=== PATIENT | female | born 1930 | race Caucasian/White ===

== ENCOUNTER 2018-10-08 13:52 | Emergency (ER) | payer MEDICARE ==
[~2018-10-08] VITALS: Ht 162.6 cm; Wt 83.5 kg
[~2018-10-08 13:52] MED LIST: CIPRO500 MG PO; DICLOFENAC SODI50 MG PO; FOLBIC TABLET1 EACH PO; LOSARTAN POTASS50 MG PO; OMEPRAZOLE20 MG PO; PAXIL40 MG PO
--- NOTE | 2018-10-08 15:24 | Diagnostic Imaging Report ---
EXAM: CHEST SINGLE (PORTABLE) DATE: 10/08/2018 2:07 PM INDICATION: ^CHEST PAIN COMPARISON: None FINDINGS: Lines and tubes: None Heart size normal. No focal pulmonary opacity, pleural effusion or pneumothorax. Upper abdomen unremarkable. No acute bony abnormality. IMPRESSION: No evidence for acute disease. Signed by: Dr. Rodolfo Sage M.D. on 10/08/2018 3:20 PM
[2018-10-08 15:42] LABS: BASOPHILS % 0.3 % (0.0-1.0); EOSINOPHILS % 0.1 % (0.0-6.0); HEMATOCRIT 41.3 % (34.2-44.1); LYMPHOCYTES # (AUTO) 1.8 (1.0-3.2); LYMPHOCYTES % 24.8 % (18.0-39.1); MEAN CORPUSCULAR HEMOGLOBIN 31.8 pg (28-32); MEAN CORPUSCULAR HGB CONC 33.9 g/dL (31-35); MEAN CORPUSCULAR VOLUME 93.9 fL (81-99); MONOCYTES # (AUTO) 0.3 (0.2-0.8); MONOCYTES % 4.6 % (4.4-11.3); NEUTROPHILS # (AUTO) 5.2 (2.1-6.9); NEUTROPHILS % 69.8 % (38.7-80.0); PLATELET COUNT 179 x10e3/uL (140-360); RED CELL DISTRIBUTION WIDTH 13.5 % (11.7-14.4)
[2018-10-08] MEDS ORDERED: PROMETHAZINE 25MG/ NS 50ML (IV) IV ONE (15:45)
[2018-10-08 16:03] LABS: ALBUMIN 3.7 g/dL (3.5-5.0); ALBUMIN/GLOBULIN RATIO 1.2 (0.8-2.0); CALCIUM 9.6 mg/dL (8.4-10.2); CREATININE, SERUM 0.9 mg/dL (0.57-1.11)
[2018-10-08 16:04] LABS: MAGNESIUM 2.5 MG/DL (1.3-2.1)
[2018-10-08 16:05] LABS: CLARITY,URINE HAZY (CLEAR); COLOR,URINE YELLOW (YELLOW); LEUKOCYTE ESTERASE ,URINE NEGATIVE (NEGATIVE); NITRITE,URINE NEGATIVE (NEGATIVE); PROTEIN,URINE DIPSTICK NEGATIVE (NEGATIVE)
[2018-10-08 16:06] LABS: BILIRUBIN,URINE NEGATIVE (NEGATIVE); KETONES,URINE TRACE (NEGATIVE); URINE UROBILINOGEN 0.2 mg/dL (0.2 - 1)
[2018-10-08 16:07] LABS: INR 0.95; PARTIAL THROMBOPLASTIN TIME 25.1 seconds (23.8-35.5); PROTHROMBIN TIME 13.2 seconds (11.9-14.5)
[2018-10-08 16:10] LABS: CREATINE KINASE MB 0.5 ng/mL (0-5.0)
[2018-10-08 16:15] LABS: AMORPHOUS SEDIMENT,URINE FEW (FEW); BACTERIA,URINE MODERATE /HPF; EPITHELIAL CELLS,URINE FEW /LPF; HYALINE CASTS 0-1 (0-1); MUCUS,URINE FEW (RARE); WBC,URINE (MAN) 0-5 /HPF (0-5)
[2018-10-08] MEDS ORDERED: SODIUM CHLORIDE 0.9% 50ML 0 ML ONE (17:11)
[2018-10-08] MEDS ORDERED: IOPAMIDOL 370 MG/ML 200 ML INFUS..BTL INJ ONE (17:11)
--- NOTE | 2018-10-08 17:50 | Diagnostic Imaging Report ---
EXAMINATION: CT of the abdomen and pelvis with contrast. TECHNIQUE: Helical CT images of the abdomen and pelvis were performed from the lung bases to the lesser trochanters after the intravenous administration of 100 cc of Isovue 300 and the oral administration of none. Coronal and sagittal reformatted images were obtained.Dose modulation, iterative reconstruction, and/or weight based adjustment of the mA/kV was utilized to reduce the radiation dose to as low as reasonably achievable. COMPARISON: None. CLINICAL HISTORY:Nausea DISCUSSION: ABDOMEN/PELVIS: LOWER THORAX:Unremarkable. HEPATOBILIARY: No focal hepatic lesions. Cholecystectomy. Intrahepatic biliary dilatation. The common bile duct measures 1.4 cm. SPLEEN: No splenomegaly. PANCREAS: No focal masses or ductal dilatation. ADRENALS: No adrenal nodules. KIDNEYS/URETERS: No hydronephrosis, stones, or solid mass lesions. PELVIC ORGANS/BLADDER: The bladder is normal. PERITONEUM/RETROPERITONEUM: No free air or fluid. LYMPH NODES: No intra-abdominal, retroperitoneal, pelvic or inguinal lymphadenopathy. VESSELS: Mild vascular calcifications. GI TRACT: Colonic diverticulosis. No inflammatory change. Hiatal hernia. BONES AND SOFT TISSUE: No bony destructive lesions. Advanced bilateral hip degenerative arthrosis. Multilevel thoracolumbar spondylosis. Large posterior disc osteophyte complex at T12-L1. IMPRESSION: No acute CT finding. Cholecystectomy with dilated biliary system may be due to reservoir effect and age-related. Correlate with laboratory values. Colonic diverticulosis without inflammatory change. Signed by: Dr. Joshua De La Cruz M.D. on 10/08/2018 5:47 PM
[2018-10-08] MEDS ORDERED: ZOFRAN4 MG SL (18:22)
[2018-10-08 18:59] VITALS: BP 154/91
== END 2018-10-08 19:05 | disposition home or self-care (01) ==
LOC: ER 13:52
DX: A09 Infectious gastroenteritis and colitis, unspecified (principal); R42 Dizziness and giddiness; Z88.5 Allergy status to narcotic agent; Z88.0 Allergy status to penicillin; I10 Essential (primary) hypertension; K21.9 Gastro-esophageal reflux disease without esophagitis
CPT/HCPCS: 36415; 71045; 74177; 80053; 81001; 82150; 82550; 82553; 83690; 83735; 83880; 84484; 85025; 85610; 85730; 93005; 99284; J2550; Q9967